=== PATIENT | male | born 1990 | race African-American/Black ===

== ENCOUNTER 2017-05-07 22:31 | Emergency (ER) | payer SELFPAY ==
[2017-05-07 22:41] VITALS: BP 132/83; PULSE 69; TEMP 98; BMI 31.2
--- NOTE | 2017-05-07 23:57 | PDOC ---
Attending Attestation - Resident Resident Name: Jose MlonnieArthur - ED Attending Attestation I have performed the following: I agree w/resident's findings & plan - HPI HPI: 05/08/17 00:42 Pt comes with a small paronychia after biting the skin off his finger. - Physicial Exam PE: 05/08/17 00:43 Agree with resident exam - Medical Decision Making 05/08/17 00:43 Pt had a smalll amount of pus removed from his fingertip. Pt will go home with abx.
[2017-05-08] MEDS ORDERED: SULFAMETHOXAZOLE/TRIMETHOPRIM 800MG/160MG D.S. TABLET PO ONE (00:47)
[2017-05-08] MEDS ORDERED: SULFAMETHOXAZOLE/TRIMETHOPRIM 800MG/160MG D.S. TABLET ONE (00:50)
--- NOTE | 2017-05-08 00:57 | PDOC ---
History of Present Illness - General Chief Complaint: Pain Stated Complaint: PAIN Time Seen by Provider: 05/07/17 23:22 History Source: Patient Exam Limitations: No Limitations - History of Present Illness Initial Comments: 05/08/17 00:52 The patient is a 27M with a PMH of RA (b/l knees) and asthma who presents with a R ring finger peronychia. The patient states that this started 2 days ago when he bit it while high on marijuana. Since then, it has hurt him. No other complaints. Past History - Past Medical History Allergies/Adverse Reactions: Allergies Allergy/AdvReac Type Severity Reaction Status Date / Time No Known Allergies Allergy Verified 05/07/17 22:41 Other medical history: rheumatoid arthritis both knees - Suicide/Smoking/Psychosocial Hx Smoking History: Current every day smoker Information on smoking cessation initiated: No Review of Systems - Review of Systems Able to Perform ROS?: Yes Is the patient limited [place] proficient: No Constitutional: No: Chills, Fever, Night Sweats, Weakness Respiratory: No: Cough, Shortness of Breath Cardiac (ROS): No: Chest Pain ABD/GI: No: Nausea, Vomiting : No: Burning, Dysuria Integumentary: Yes: Lesions (swelling and painful R ring finger) Neurological: No: Headache, Numbness, Tingling, Weakness *Physical Exam - Vital Signs Last Vital Signs Temp Pulse Resp BP Pulse Ox 98 F 69 18 132/83 99 05/07/17 22:37 05/07/17 22:37 05/07/17 22:37 05/07/17 22:37 05/07/17 22:37 - Physical Exam General Appearance: Yes: Nourished, Appropriately Dressed. No: Apparent Distress HEENT: positive: Normal Voice, Hearing Grossly Normal Respiratory/Chest: positive: Lungs Clear, Normal Breath Sounds. negative: Accessory Muscle Use Cardiovascular: positive: Regular Rhythm, Regular Rate, S1, S2. negative: Diastolic Murmur, Systolic Murmur Gastrointestinal/Abdominal: positive: Flat, Soft. negative: Tender Extremity: negative: Swelling, Calf Tenderness Integumentary: positive: Dry, Warm, Other (peronychia on tip of R ring finger, small pocket of pus noted on lateral nail bed) Neurologic: positive: Fully Oriented, Alert, Normal Mood/Affect Procedures - Incision and Drainage I&D Site: Right: Other (ring finger) Anesthesia: 1% Lidocaine Blade Size: 11 Plain Packing: No Dressing: Yes (cleaned, triple antibiotic ointmet, and wrapped) Medical Decision Making - Medical Decision Making 05/08/17 00:56 The patient is a 27M who presented with peronychia. I have incised and drained the pus. A very small amount of pus is noted after incision. I have instructed the patient to keep the area clean and use warm washes with antibiotic ointment. Patient agrees and is ready for discharge. Patient also instructed to follow up with his PCP. *DC/Admit/Observation/Transfer Diagnosis at time of Disposition: Paronychia - Discharge Dispostion Disposition: HOME Condition at time of disposition: Improved Admit: No - Patient Instructions Printed Discharge Instructions: Paronychia Additional Instructions: Please return to the ER if symptoms persist, worsen, or if new symptoms arise. Please follow up with your primary care doctor. Please soak your finger in warm water and then apply triple antibiotic ointment. Print Language: [id number]
== END 2017-05-08 01:09 | disposition home or self-care (01) ==
LOC: JER 22:31
PROC: 0H9QXZZ Drainage of Finger Nail, External Approach (ICD-10-PCS; principal; 2017-05-07)
DX: L03.011 Cellulitis of right finger (principal)
CPT/HCPCS: 99281-25